=== PATIENT | male | born 1995 | race Caucasian/White ===

== ENCOUNTER 2017-11-26 18:30 | Emergency (ER) | payer OTHER ==
[~2017-11-26] VITALS: Ht 167.6 cm; Wt 95.2 kg
[~2017-11-26 18:30] MED LIST: Monodox100 MG PO; Prednisone10 MG PO; Prednisone20 MG PO; Prilosec20 MG PO; Ultram50 MG PO; Ventolin/Prove6.7 GM INH
[2017-11-26 19:58] LABS: Influenza A Negative (NEGATIVE); Influenza B Negative (NEGATIVE)
[2017-11-26] MEDS ORDERED: Pseudoephedrine30 MG PO (20:31)
[2017-11-26] MEDS ORDERED: BENZ100A PO (20:31)
[2017-11-26] MEDS ORDERED: Mucinex600 MG PO (20:31)
== END 2017-11-26 20:43 | disposition home or self-care (01) ==
LOC: ER 18:30
PROVIDERS: Physician Assistant
DX: J02.9 Acute pharyngitis, unspecified (principal); Z88.0 Allergy status to penicillin; Z88.8 Allergy status to other drugs, medicaments and biological substances; Z88.1 Allergy status to other antibiotic agents; J45.909 Unspecified asthma, uncomplicated
CPT/HCPCS: 87081; 87430; 87804; 99283; J1100

== ENCOUNTER → 2019-01-05 | Outpatient (CLI) | payer OTHER ==
[~2019-01-05] MED LIST changes: +BENZ100A PO; +CYCL10 PO; +IBUP800 PO; +Mucinex600 MG PO; +Pseudoephedrine30 MG PO
== END | disposition home or self-care (01) ==
LOC: LAB SHORT 12:11 → LAB EV 12:11
DX: L73.9 Follicular disorder, unspecified (principal)
CPT/HCPCS: 87070; 87205

== ENCOUNTER 2020-05-05 06:33 | Emergency (ER) | payer OTHER ==
[~2020-05-05] VITALS: Ht 167.6 cm; Wt 104.3 kg
[2020-05-05] MEDS ORDERED: Flovent Disku100 MCG INH (07:39)
[2020-05-05] MEDS ORDERED: ALBU90OI INH (07:39)
== END 2020-05-05 08:00 | disposition home or self-care (01) ==
LOC: ER 06:33
DX: J45.901 Unspecified asthma with (acute) exacerbation (principal); Z88.0 Allergy status to penicillin; Z87.891 Personal history of nicotine dependence
CPT/HCPCS: 71045; 94640; 99284-25

== ENCOUNTER → 2024-09-07 | Outpatient (CLI) | payer OTHER ==
[~2024-09-07] MED LIST changes: +ALBU90OI INH; +Flovent Disku100 MCG INH
[2024-09-10 08:32] LABS: HIV 1,2 COMBO ANTIGEN/ANTIBODY Negative (Negative)
[2024-09-10 09:54] LABS: HCV QNT BY NAAT (IU/ML) Not Detected; HCV QNT BY NAAT (LOG IU/ML) Not Detected; HCV QNT BY NAAT INTERP Not Detected (Not Detected)
[2024-09-10 10:01] LABS: HEPATITIS B SURFACE ANTIBODY <3.10 IU/L
[2024-09-10 12:05] LABS: HEPATITIS B SURFACE ANTIGEN Negative (Negative)
== END ==
LOC: LAB 18:09 → LAB SHORT 18:09
PROVIDERS: Chiropractor
DX: Z20.9 Contact with and (suspected) exposure to unspecified communicable disease (principal)
CPT/HCPCS: 84460; 87340; 87389; 87522